=== PATIENT | female | born 1970 | race Caucasian/White ===

== ENCOUNTER 2016-11-26 21:46 | Emergency (ER) | payer MEDICAID ==
[~2016-11-26] VITALS: Ht 172.7 cm; Wt 100.0 kg
[2016-11-26] MEDS ORDERED: SODIUM CHLORIDE FLUSH 10 ML SYR IV PRN (22:05)
[2016-11-26] MEDS ORDERED: LORazepam 2 MG/ML (ATIVAN) 1 ML VIAL IV ONE (22:05)
[2016-11-26] MEDS ORDERED: SODIUM CHLORIDE FLUSH 3 ML SYR IV ONE (22:05)
[2016-11-26] MEDS ORDERED: ONDANSETRON 2 MG/ML (Z0FRAN) 2 ML VIAL IV ONE (22:05)
[2016-11-26] MEDS ORDERED: KETOROLAC 30 MG/ML (TORADOL) 1 ML VIAL IV ONE (22:05)
[2016-11-26] MEDS ORDERED: PANTOPRAZOLE IV 80 MG in SODIUM CHLORIDE FLUSH 20 ML IV ONE (22:20)
[2016-11-26 22:22] LABS: BASOPHILS % (AUTO) 0 % (0-2); EOSINOPHILS # (AUTO) 0.1 10^3uL; EOSINOPHILS % (AUTO) 1 % (0-4); LYMPHOCYTES # (AUTO) 5.2 X10^3; MEAN CORPUSCULAR HGB CONC 34.4 g/dL (31.0-37.0); MEAN CORPUSCULAR VOLUME 92 FL (80-100); MEAN PLATELET VOLUME 9.8 FL (6.0-9.5); MONOCYTES % (AUTO) 6 % (3-11); NEUTROPHILS # (AUTO) 10.5 X10^3; NEUTROPHILS % (AUTO) 62 % (51-67); PLATELET COUNT 209 10^3uL (150-450); WHITE BLOOD COUNT 16.97 10^3uL (4.0-11.0)
[2016-11-26 22:28] LABS: MEAN CORPUSCULAR HEMOGLOBIN 31.8 PG (26.0-34.0)
[2016-11-26 22:33] LABS: ALBUMIN 4.7 g/dL (3.4-5.0); ANION GAP 19.7 MEQ/L (3-15); CALCULATED IONIZED CALCIUM 3.8 mg/dL (3.8-4.6); TOTAL PROTEIN 8.1 g/dL (6.4-8.5)
--- NOTE | 2016-11-26 22:34 | NUR ---
Gave 80mg of Protonix IV per DR. Johnson orders
[2016-11-27 00:40] LABS: BAND NEUTROPHILS % 2 % (0-6); EOSINOPHILS % 1 % (0-4); MONOCYTES % 2 % (3-11); RBC MORPH NORMAL (NORMAL); SEGMENTED NEUTROPHILS % 64 % (51-67); TOTAL CELLS COUNTED 100
[2016-11-27 04:10] VITALS: BP 128/85
== END 2016-11-27 01:05 | disposition home or self-care (01) ==
LOC: ED 21:47
DX: K29.20 Alcoholic gastritis without bleeding (principal); F10.229 Alcohol dependence with intoxication, unspecified; Y90.5 Blood alcohol level of 100-119 mg/100 ml
CPT/HCPCS: 36415; 74022; 80053; 82150; 83690; 85025; 85610; 86140; 96361; 96374; 96375; 99285; C9113; G0480; J1885; J2060; J2405; J7030; 80320; 99283

== ENCOUNTER → 2016-12-12 | Outpatient (CLI) | payer MEDICAID | LOC: RAD 08:47 | PROVIDERS: ATTEND Family Medicine | DX: R10.11 Right upper quadrant pain (principal); K80.20 Calculus of gallbladder without cholecystitis without obstruction | CPT/HCPCS: 76705 ==

== ENCOUNTER 2017-01-10 08:14 | Day surgery (SDC) | payer MEDICAID ==
[~2017-01-10] VITALS: Ht 172.7 cm; Wt 100.0 kg
[~2017-01-10 08:14] MED LIST: BUPIVACAINE/EPINEPHRINE 0.5%-1:200,000 (MARCAINE) 30 ML VIAL INJ ONE; LACTATED RINGERS 1,000 ML IV SCH; SODIUM CHLORIDE FLUSH 3 ML SYR IV PRN
[2017-01-10 08:21] VITALS: BP 122/87
[2017-01-10] MEDS ORDERED: MIDAZOLAM 2 MG/2 ML (VERSED) VIAL ONE ×2 (10:29→14:00)
[2017-01-10] MEDS ORDERED: ALFENTANIL 500 MCG/ML (ALFENTA) 5 ML AMP IV ONE (10:29)
[2017-01-10] MEDS ORDERED: ROCURONIUM 50 MG/5 ML (ZEMURON) VIAL IV ONE ×4 (11:08→14:17)
[2017-01-10] MEDS ORDERED: ONDANSETRON 2 MG/ML (Z0FRAN) 2 ML VIAL ONE (11:14)
[2017-01-10] MEDS ORDERED: diphenhydrAMINE 50 MG/ML INJ (BENADRYL) ONE (11:14)
[2017-01-10] MEDS ORDERED: GLYCOPYRROLATE 0.2 MG/ML (ROBINUL) 1 ML VIAL ONE (11:16)
[2017-01-10] MEDS ORDERED: NEOSTIGMINE 1 MG/ML SYRINGE ONE (11:16)
[2017-01-10] MEDS ORDERED: HEPARIN 5000 UNIT/0.5 ML SYRINGE ONE (13:20)
[2017-01-10] MEDS ORDERED: SODIUM CHLORIDE ONE (13:20)
[2017-01-10 13:40] LABS: BILIRUBIN,URINE Negative (Negative); COLOR,URINE Yellow; GLUCOSE, URINE (UA) Negative (Negative); LEUKOCYTE ESTERASE ,URINE Negative (Negative); UROBILINOGEN,URINE 0.2 mg/dL (0.2-1.0)
[2017-01-10 13:43] LABS: CLARITY,URINE Slightly Cloudy
[2017-01-10 13:47] LABS: URINE CENTRIFUGED VOLUME 11 mL
[2017-01-10] MEDS ORDERED: ALFENTANIL 1,000 MCG/2 ML AMP IV ONE (14:00)
== END 2017-01-10 14:25 | disposition short-term general hospital (02) ==
LOC: ASC 08:14
PROVIDERS: ATTEND Surgery
DX: K80.20 Calculus of gallbladder without cholecystitis without obstruction (principal); K66.0 Peritoneal adhesions (postprocedural) (postinfection); K82.8 Other specified diseases of gallbladder; K91.71 Accidental puncture and laceration of a digestive system organ or structure during a digestive system procedure; Y65.8 Other specified misadventures during surgical and medical care; Y92.234 Operating room of hospital as the place of occurrence of the external cause; Z53.31 Laparoscopic surgical procedure converted to open procedure; Z98.84 Bariatric surgery status
CPT/HCPCS: 36415; 47600; 71010; 81003; 81015; 84132; 85014; 85018; 85610; 85730; 86850; 86900; 86901; 86920; 87077; 87088; 87186; 93005; J1200; J1642; J2250; J2405; J2710; J3490; J7120; P9016

== ENCOUNTER → 2017-01-10 | Outpatient (CLI) | payer MEDICAID | LOC: EMS 14:30 | PROVIDERS: ATTEND Surgery | DX: K91.89 Other postprocedural complications and disorders of digestive system (principal); S36.113A Laceration of liver, unspecified degree, initial encounter; Y83.8 Other surgical procedures as the cause of abnormal reaction of the patient, or of later complication, without mention of misadventure at the time of the procedure; Y92.234 Operating room of hospital as the place of occurrence of the external cause ==